=== PATIENT | male | born 1995 | race African-American/Black ===

== ENCOUNTER 2023-04-17 07:35 | Emergency (ER) | payer OTHER ==
[~2023-04-17] VITALS: Ht 165.1 cm; Wt 63.5 kg
[2023-04-17 07:35] VITALS: TEMP 98.2
[2023-04-17 08:48] VITALS: BP 105/61
== END 2023-04-17 08:48 | disposition home or self-care (01) ==
LOC: ED 07:35
PROC: 0HQKXZZ Repair Right Lower Leg Skin, External Approach (ICD-10-PCS; principal; 2023-04-17)
DX: S81.011A Laceration without foreign body, right knee, initial encounter (principal); S80.01XA Contusion of right knee, initial encounter; W26.0XXA Contact with knife, initial encounter
CPT/HCPCS: 90471; 90715; 99283